=== PATIENT | male | born 1985 | race Caucasian/White ===

== ENCOUNTER 2022-08-22 15:38 | Emergency (ER) | payer BC ==
[2022-08-22 16:28] LABS: ANION GAP 12.4 mmol/L (5-15)
== END 2022-08-22 17:00 | disposition home or self-care (01) ==
LOC: VM.ED 15:38
DX: E86.0 Dehydration (principal); R26.89 Other abnormalities of gait and mobility; Z88.8 Allergy status to other drugs, medicaments and biological substances; Z87.891 Personal history of nicotine dependence
CPT/HCPCS: 36415; 70450; 80053; 81001; 82550; 83615; 83735; 84484; 85025; 93005; 93010; 99284